=== PATIENT | female | born 1945 | race Caucasian/White ===

== ENCOUNTER 2022-07-08 12:03 | Emergency (ER) | payer MEDICARE, OTHER ==
[~2022-07-08] VITALS: Ht 162.6 cm; Wt 75.3 kg
[~2022-07-08 12:03] MED LIST: ATOR20 PO; BCOIRO PO; CARV6.25 PO; CHOL10002 PO; CITRACAL; DILAUDID PUMP PO; ESOM20 PO; ESTR25VT PV; FERR160 PO; METO2.5 PO; MYCO250 PO; ONDA4ODT MM; OXYB5 PO; OXYC10TA19 PO; POLY500 PO; POTCHL20ER PO; PRED5 PO; TRAZ100 PO; VALA500 PO; [UNRECOGNIZED DRUG - OTHER]
== END 2022-07-08 14:35 | disposition home or self-care (01) ==
LOC: ER 12:03
DX: K59.00 Constipation, unspecified (principal); Z88.6 Allergy status to analgesic agent; Z88.8 Allergy status to other drugs, medicaments and biological substances; Z79.899 Other long term (current) drug therapy
CPT/HCPCS: 74018; A9270